=== PATIENT | male | born 1960 | race Caucasian/White ===

== ENCOUNTER 2017-04-23 20:36 | Emergency (ER) | payer OTHER ==
[~2017-04-23] VITALS: Ht 180.3 cm; Wt 84.3 kg
[~2017-04-23 20:36] MED LIST: CITA10TA4 PO; CLIN300C2 PO; LAMO150T32 PO; MULT-923 PO; QUET1TAB30 PO; WARF-246 PO
[2017-04-23 20:51] VITALS: TEMP 36.4; Ht 180.3 cm; Wt 84.3 kg
[2017-04-23 22:09] LABS: BASO % 0.5 %; BASO ABS # 0.03 K/uL (0-0.2); COMPLETE YES; EOS % 2.8 %; HEMATOCRIT 42.7 % (42-52); IG% 0.2 %; LYMPH % 28.3 %; LYMPH ABS # 1.69 K/uL (1.2-3.4); MEAN CELL VOLUME 88.8 fL (80-100); MEAN CORPUSCULAR HEMOGLOBIN 30.1 pg (25-34); MEAN PLATELET VOLUME 9.6 fL (7.4-10.4); MONO % 8.7 %; NEUT % 59.5 %; PLATELET COUNT 219 K/uL (130-400); RED BLOOD COUNT 4.81 M/uL (4.7-6.1); WHITE BLOOD COUNT 5.97 K/uL (4.8-10.8)
--- NOTE | 2017-04-23 22:23 | DIAGNOSTIC IMAGING REPORT ---
(CHEST) THORAX WITHOUT CT DOSE: 332.16 mGy.cm HISTORY: Trauma fall, right lateral rib pain, on coumadin TECHNIQUE: Multiaxial CT images of the chest were performed without contrast. A dose lowering technique was utilized adhering to the principles of ALARA. COMPARISON: None. FINDINGS: Lungs are clear. Minimal atelectasis right base and right middle lobe. No evidence pneumothorax. Hilar and mediastinal regions are unremarkable. Nondisplaced hairline cortical fractures right fifth and sixth ribs the midaxillary line. No associated mass collection or hematoma. All remaining osseous structures are unremarkable. IMPRESSION: 1. Nondisplaced cortical fractures right fifth and sixth ribs. 2. Study is otherwise negative with only minimal right basilar atelectasis. 3. Degenerative change throughout the entire thoracic spine with no acute deformity. The above report was generated using voice recognition software. It may contain grammatical, syntax or spelling errors. Electronically signed by: Sharad Spicer M.D. 04/23/2017 10:22 PM Dictated Date/Time: 04/23/2017 10:15 PM
[2017-04-23 22:29] LABS: INR 3.1 (0.9-1.1); PARTIAL THROMBOPLASTIN RATIO 1.8; PROTHROMBIN TIME (PATIENT) 34.3 SECONDS (9.0-12.0)
[2017-04-23 22:31] LABS: ALKALINE PHOSPHATASE 84 U/L (45-117); ALT/SGPT 46 U/L (12-78); AST/SGOT 33 U/L (15-37); BLOOD UREA NITROGEN 20 mg/dl (7-18); BUN/CREATININE RATIO 20.4 (10-20); CALCIUM 8.8 mg/dl (8.5-10.1); CARBON DIOXIDE 30 mmol/L (21-32); CHLORIDE 106 mmol/L (98-107); CREATININE 0.96 mg/dl (0.60-1.40); GLUCOSE 84 mg/dl (70-99); POTASSIUM 4.5 mmol/L (3.5-5.1); SODIUM 139 mmol/L (136-145)
--- NOTE | 2017-04-23 22:43 | EMERGENCY ROOM VISIT NOTE ---
ED Visit Note First contact with patient: 21:26 I did evaluate and examine this patient myself. I did guide management for the patient. I agree with the APC's assessment as discussed. Please see the APC's dictation for further details. I did independently review the CT scan and blood work. His INR is slightly elevated at 3.1. His CT scan shows no evidence of pneumothorax. He does have a fracture to the fifth and sixth ribs which are nondisplaced. He also complains of some right leg pain and numbness posterior thigh but has no dysfunction, hematoma or swelling. He was advised to follow closely with his doctor. He was told to hold his Coumadin one day and then resume at the normal dosage.
[2017-04-23 22:44] VITALS: BP 122/72; PULSE 58; O2SAT 98
[2017-04-23] MEDS ORDERED: TRAMADOL HCL 50 MG HOME PACK PO ONE (22:45)
--- NOTE | 2017-04-23 22:59 | EMERGENCY ROOM VISIT NOTE ---
History First contact with patient: 21:26 Chief Complaint: FALL Stated Complaint: FALL R SIDE PAIN AND BUTTOCKS History of Present Illness The patient is a 56 year old male who presents to the Emergency Room with complaints of falling on Saturday after chasing a bunny and tripping and landing on his right side. Patient complains of right mid axillary chest wall pain and right hamstring pain since the initial fall. Pain currently 5 out of 10. Worse with breathing and better with rest. Patient is on Coumadin for DVT. INR last week was slightly high. He does not know the exact number. Patient denies dyspnea, abdominal pain, back pain, numbness, tingling, pelvic pain, head injury, neck pain, loss of consciousness. Patient had x-rays done today by family care and was advised to go the ER. He is unsure why. Patient states he is able to ambulate without difficulties. Patient denies knee pain, tomlin pain, fever or pain, numbness, tingling. He states when he is 19 he fell 30 feet had atraumatic brain injury and broke some ribs but is unsure where. No prior leg fractures. Review of Systems See HPI for pertinent positives & negatives. A total of 10 systems reviewed and were otherwise negative. Past Medical/Surgical History Traumatic brain injury, seizures, DVT Social History Smoking Status: Never Smoker Smokeless Tobacco Use: No Alcohol Use: none Drug Use: none Housing Status: lives with family Current/Historical Medications Scheduled Citalopram Hydrobromide (Citalopram Hydrobromide), 10 MG PO DAILY Lamotrigine (Lamictal), 300 MG PO BID Multiple Vitamins W/ Minerals (Multivitamin Men), 1 TAB PO Q2D Quetiapine Fumarate (Seroquel), 25 MG PO DAILY Warfarin Sodium (Warfarin Sodium), 10 MG PO 3XWK Warfarin Sodium (Warfarin Sodium), 15 MG PO 4XWK Physical Exam Vital Signs Date Time Temp Pulse Resp B/P (MAP) Pulse Ox O2 Delivery O2 Flow Rate FiO2 04/23/17 22:44 58 18 122/72 98 Room Air 04/23/17 20:51 36.4 58 16 121/61 97 Room Air Physical Exam PHYSICAL EXAM: VITALS: Vitals are noted on the nurse's note and reviewed by myself. Vital signs stable. GENERAL: Pleasant male able to ambulate without difficulties, in no acute distress, nondiaphoretic, well-developed well-nourished. SKIN: The skin was without obvious lacerations or abrasions. Capillary reflex less than 2 seconds. HEAD: Normocephalic atraumatic. EARS: External auditory canals clear, tympanic membranes pearly davis without erythema or effusion bilaterally. No hemotympanums. No jaquez sign. No mastoid tenderness. EYES: Pupils equal round and reactive to light and accommodation. Conjunctivae without injection, sclerae without icterus. Extraocular movements intact. NOSE: Patent, turbinates without inflammation or discharge. No sinus tenderness. No septal hematoma or bleeding. MOUTH: Mucous membranes moist. Pharynx without erythema or exudate. Uvula midline. Airway patent. Tongue does not deviate. NECK: Supple without nuchal rigidity. Cervical spine is nontender. Full range of motion of the neck without tenderness. No JVD. HEART: Regular rate and rhythm without murmurs gallops or rubs. LUNGS: Clear to auscultation bilaterally without wheezes, rales or rhonchi. No dullness to percussion. No retractions or accessory muscle use. Right midaxillary line over ribs 45 and 6 with chest wall tenderness. Without crepitus or ecchymosis ABDOMEN: Positive bowel sounds x 4. Normal tympanic percussion. Soft, nontender, without masses or organomegaly. No guarding or rebound tenderness. MUSCULOSKELETAL: No tenderness of the thoracic or lumbar spine. No tenderness with pelvic rocking. Full range of motion without tenderness to palpation in all extremities. Normal gait. Strength 5/5 throughout. Peripheral pulses 2+. NEURO: Patient was alert and oriented to person place and time. Normal Mini- Mental status exam. Normal sensation to light and sharp touch. Cerebellar function intact. No focal neurological deficits. Medical Decision & Procedures Laboratory Results 04/23/17 21:50 Red Blood Count 4.81, Mean Corpuscular Volume 88.8, Mean Corpuscular Hemoglobin 30.1, Mean Corpuscular Hemoglobin Concent 34.0, Mean Platelet Volume 9.6, Neutrophils (%) (Auto) 59.5, Lymphocytes (%) (Auto) 28.3, Monocytes (%) (Auto) 8.7, Eosinophils (%) (Auto) 2.8, Basophils (%) (Auto) 0.5, Neutrophils # (Auto) 3.55, Lymphocytes # (Auto) 1.69, Monocytes # (Auto) 0.52, Eosinophils # (Auto) 0.17, Basophils # (Auto) 0.03 04/23/17 21:50 Test 04/23/17 21:50 White Blood Count 5.97 K/uL (4.8-10.8) Red Blood Count 4.81 M/uL (4.7-6.1) Hemoglobin 14.5 g/dL (14.0-18.0) Hematocrit 42.7 % (42-52) Mean Corpuscular Volume 88.8 fL (80-100) Mean Corpuscular Hemoglobin 30.1 pg (25-34) Mean Corpuscular Hemoglobin Concent 34.0 g/dl (32-36) Platelet Count 219 K/uL (130-400) Mean Platelet Volume 9.6 fL (7.4-10.4) Neutrophils (%) (Auto) 59.5 % Lymphocytes (%) (Auto) 28.3 % Monocytes (%) (Auto) 8.7 % Eosinophils (%) (Auto) 2.8 % Basophils (%) (Auto) 0.5 % Neutrophils # (Auto) 3.55 K/uL (1.4-6.5) Lymphocytes # (Auto) 1.69 K/uL (1.2-3.4) Monocytes # (Auto) 0.52 K/uL (0.11-0.59) Eosinophils # (Auto) 0.17 K/uL (0-0.5) Basophils # (Auto) 0.03 K/uL (0-0.2) RDW Standard Deviation 42.4 fL (36.4-46.3) RDW Coefficient of Variation 13.0 % (11.5-14.5) Immature Granulocyte % (Auto) 0.2 % Immature Granulocyte # (Auto) 0.01 K/uL (0.00-0.02) Prothrombin Time 34.3 SECONDS (9.0-12.0) Prothromb Time International Ratio 3.1 (0.9-1.1) Activated Partial Thromboplast Time 46.8 SECONDS (21.0-31.0) Partial Thromboplastin Ratio 1.8 Anion Gap 3.0 mmol/L (3-11) Est Creatinine Clear Calc Drug Dose 90.4 ml/min Estimated GFR () 101.3 Estimated GFR (Non- 87.4 BUN/Creatinine Ratio 20.4 (10-20) Calcium Level 8.8 mg/dl (8.5-10.1) Total Bilirubin 0.2 mg/dl (0.2-1) Direct Bilirubin mg/dl (0-0.2) Aspartate Amino Transf (AST/SGOT) 33 U/L (15-37) Alanine Aminotransferase (ALT/SGPT) 46 U/L (12-78) Alkaline Phosphatase 84 U/L (45-117) Total Protein 7.2 gm/dl (6.4-8.2) Albumin 3.4 gm/dl (3.4-5.0) Chemistry Specimen Hemolysis ED Course Prior records/ancillary studies reviewed. Triage Nursing notes reviewed. Additional history obtained from family The patient's history was concerning for traumatic injury Differential diagnosis: Etiologies such as fracture, dislocation, intra-abdominal, pneumothorax, intrathoracic , intracranial, neurologic, as well as other traumatic pathologies were entertained. Physical examination findings: As above. The patients vitals were stable. ER treatment provided: Incentive spirometry On reassessment the patient felt better. Vital signs were stable. Diagnostic interpretation by me: The labs revealed stable H&H. Slightly elevated INR at 3.1 Imaging studies: (CHEST) THORAX WITHOUT CT DOSE: 332.16 mGy.cm HISTORY: Trauma fall, right lateral rib pain, on coumadin TECHNIQUE: Multiaxial CT images of the chest were performed without contrast. A dose lowering technique was utilized adhering to the principles of ALARA. COMPARISON: None. FINDINGS: Lungs are clear. Minimal atelectasis right base and right middle lobe. No evidence pneumothorax. Hilar and mediastinal regions are unremarkable. Nondisplaced hairline cortical fractures right fifth and sixth ribs the midaxillary line. No associated mass collection or hematoma. All remaining osseous structures are unremarkable. IMPRESSION: 1. Nondisplaced cortical fractures right fifth and sixth ribs. 2. Study is otherwise negative with only minimal right basilar atelectasis. 3. Degenerative change throughout the entire thoracic spine with no acute deformity. The above report was generated using voice recognition software. It may contain grammatical, syntax or spelling errors. This appears to be consistent with to right-sided rib fractures. Patient also had slightly elevated INR. Patient's pain was under control. He states he does not need anything stronger. Tylenol. He was given a home pack of Ultram for severe pain case he did needed. He was advised to do incentive spirometry for the next 2 weeks and to follow-up family care in a few days or here in the ER sooner for chest pain, difficulty breathing, fevers, worsening signs or symptoms or as needed. He was advised to hold his Coumadin today and then resume his normal regimen and recheck INR in 1 week. By the evaluation outlined above emergent etiologies such as dislocation, intra-abdominal, pneumothorax, pulmonary contusion, hemothorax, intracranial, neurologic,as well as others were deemed relatively unlikely. The pt informed about the findings as listed above. All questions were answered and pleased with the treatment. Return instructions were outlined and the patient was discharged in stable condition. Referral: The patient was referred to PCP for follow-up in 2 to 3 days for a recheck of the current condition. Case reviewed with my attending Medical Decision As above Medication Reconcilliation Current Medication List: was personally reviewed by me Blood Pressure Screening Patient's blood pressure: Normal blood pressure Impression Primary Impression: Rib fractures Additional Impressions: Supratherapeutic INR Fall Departure Information Dispostion Home / Self-Care Condition GOOD Forms HOME CARE DOCUMENTATION FORM, IMPORTANT VISIT INFORMATION Patient Instructions Lesli Leavitt, My [facility] Additional Instructions Hold your Coumadin today. Restart your normal regimen tomorrow. Recheck your INR in 1 week with family care. Ultram 50 mg: Take 1-2 pills every four hours for breakthrough pain. Avoid alcohol, operating machinery or dangerous equipment, working on ladders or roofs , DRIVING, or situations where being under the influence may be dangerous. It is recommended to use an [id number] stool softener such as Colace, 100mg twice daily while taking this medication to avoid constipation. Acetaminophen(Tylenol) may be used for fever or pain. Use 1000mg every six hours as needed. Avoid using more than 3000mg in a 24 hour period. Rest and drink plenty of fluids as tolerated. Continue current medications. Avoid strenuous activities and anything that worsens your pain. Resume normal activities once your symptoms resolve. Return to the ER immediately for worsening or persistent chest pain, abdominal pain, vomiting, fevers, chest pains, difficulty breathing, worsening of your condition, or as needed. Follow up with your primary physician in 2-3 days for a recheck of your current condition. Problem Qualifiers Primary Impression: Rib fractures Encounter type: initial encounter Rib fracture type: multiple ribs Fracture type: closed Laterality: right Qualified Codes: S22.41XA - Multiple fractures of ribs, right side, initial encounter for closed fracture
== END 2017-04-23 22:55 | disposition home or self-care (01) ==
LOC: C.EDB 20:37 → C.EDD 22:55
DX: S22.41XA Multiple fractures of ribs, right side, initial encounter for closed fracture (principal); R79.1 Abnormal coagulation profile; W01.198A Fall on same level from slipping, tripping and stumbling with subsequent striking against other object, initial encounter; Y93.89 Activity, other specified; Y99.8 Other external cause status; R20.0 Anesthesia of skin; Z87.820 Personal history of traumatic brain injury; Z86.718 Personal history of other venous thrombosis and embolism; Z86.69 Personal history of other diseases of the nervous system and sense organs; Z79.01 Long term (current) use of anticoagulants; Z79.899 Other long term (current) drug therapy

== ENCOUNTER 2017-05-19 12:19 | Emergency (ER) | payer OTHER ==
[~2017-05-19] VITALS: Ht 180.3 cm; Wt 84.3 kg
[~2017-05-19 12:19] MED LIST changes: -CLIN300C2 PO
[2017-05-19 12:30] VITALS: TEMP 37.4; Ht 180.3 cm; Wt 84.3 kg
[2017-05-19 12:38] VITALS: O2SAT 98
--- NOTE | 2017-05-19 13:12 | DIAGNOSTIC IMAGING REPORT ---
CHEST ONE VIEW PORTABLE CLINICAL HISTORY: chest pain dyspnea COMPARISON STUDY: No previous studies for comparison. FINDINGS: The bones soft tissues and hemidiaphragms are normal. The cardiomediastinal silhouette is normal. The lungs are clear. The pulmonary vasculature is normal. IMPRESSION: Negative chest. The above report was generated using voice recognition software. It may contain grammatical, syntax or spelling errors. Electronically signed by: Sharad Spicer M.D. 05/19/2017 1:11 PM Dictated Date/Time: 05/19/2017 1:11 PM
[2017-05-19] MEDS ORDERED: ACETAMINOPHEN IV 100 ML IV STA (13:14)
[2017-05-19] MEDS ORDERED: FENTANYL CITRATE INJ 50 MCG/1 ML 2 ML VIAL IV STA (13:14)
[2017-05-19 13:15] LABS: HEMATOCRIT 41.6 % (42-52); MEAN CELL VOLUME 87.6 fL (80-100); MEAN CORPUSCULAR HEMOGLOBIN 30.7 pg (25-34); MEAN CORPUSCULAR HGB CONC 35.1 g/dl (32-36); MEAN PLATELET VOLUME 9.6 fL (7.4-10.4); PLATELET COUNT 213 K/uL (130-400); RED BLOOD COUNT 4.75 M/uL (4.7-6.1); WHITE BLOOD COUNT 7.01 K/uL (4.8-10.8)
[2017-05-19 13:30] LABS: INR 2.8 (0.9-1.1); PARTIAL THROMBOPLASTIN RATIO 1.6; PROTHROMBIN TIME (PATIENT) 31.5 SECONDS (9.0-12.0)
[2017-05-19 13:32] LABS: BUN/CREATININE RATIO 17.4 (10-20); CALCIUM 8.9 mg/dl (8.5-10.1); CREATININE 0.98 mg/dl (0.60-1.40); POTASSIUM 4.2 mmol/L (3.5-5.1)
[2017-05-19 13:37] LABS: CKMB/CK RATIO 2.8 (0-3.0)
--- NOTE | 2017-05-19 14:14 | DIAGNOSTIC IMAGING REPORT ---
HEAD WITHOUT CONTRAST (CT) CT DOSE: 614.27 mGy.cm HISTORY: Trauma recent fall, hit head, on coumadin TECHNIQUE: Multiaxial CT images of the head were performed without the use of intravenous contrast. A dose lowering technique was utilized adhering to the principles of ALARA. Comparison: 12/06/2007 Findings: The paranasal sinuses and mastoid air cells are clear. The calvarium and skull base are intact. The ventricles and sulci are within normal limits. There is no mass, hematoma, midline shift, or acute infarct. Age-related mild chronic small vessel change and atrophy. Impression: No acute intracranial abnormality. The above report was generated using voice recognition software. It may contain grammatical, syntax or spelling errors. Electronically signed by: Sharad Spicer M.D. 05/19/2017 2:12 PM Dictated Date/Time: 05/19/2017 2:12 PM
--- NOTE | 2017-05-19 14:20 | EMERGENCY ROOM VISIT NOTE ---
History First contact with patient: 13:04 Chief Complaint: CHEST PAIN Stated Complaint: PAIN IN CENTER OF CHEST Nursing Triage Summary: Patient c/o intermittent chest pain that started yesterday with SOB. Per patient, sister is a nurse who said he was clammy. Patient denies N/V/D. History of Present Illness The patient is a 56 year old male who presents to the Emergency Room with complaints of chest pain that started yesterday afternoon. He states a few days ago that he used his chest to push a tennis ball on the bottom of his mother's walker, he believes he pushed against the area where he is having the pain. Patient states that he has a constant steady ache in the middle of his lower chest, with intermittent sharp intense squeezing pain. The pain does not radiate, is worse with movement and taking a deep breath, 5/10. He had some associated feelings of not being able to take a deep breath because of the pain , and also states he felt a little clammy yesterday, he denies any nausea, vomiting, diarrhea, dizziness or syncope, abdominal pain, back pain, headache, numbness or weakness, difficulty walking, confusion, slurring speech, fevers or chills. 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 He denies any cardiac history. His friend does note that about a week ago they were hiking and he fell, hitting his head, no loss of consciousness, and no ongoing complaints, but because he is on Coumadin he would like to have his braces checked while he is here. Review of Systems A complete 10 point review of systems was reviewed with the patient with pertinent positives and negatives as per history of present illness. All else were negative. Past Medical/Surgical History Depression, anxiety, DVT lower extremity Social History Smoking Status: Never Smoker Alcohol Use: none Drug Use: none Housing Status: lives with family Current/Historical Medications Scheduled Citalopram Hydrobromide (Citalopram Hydrobromide), 10 MG PO DAILY Lamotrigine (Lamictal), 300 MG PO BID Multiple Vitamins W/ Minerals (Multivitamin Men), 1 TAB PO Q2D Quetiapine Fumarate (Seroquel), 25 MG PO HS Warfarin Sodium (Warfarin Sodium), 10 MG PO 3XWK Warfarin Sodium (Warfarin Sodium), 15 MG PO 4XWK Allergies Coded Allergies: Penicillins (Verified Allergy, Mild, 9/10/17) Morphine (Verified Allergy, Unknown, 05/19/17) Physical Exam Vital Signs Date Time Temp Pulse Resp B/P (MAP) Pulse Ox O2 Delivery O2 Flow Rate FiO2 05/19/17 15:34 57 16 125/72 98 05/19/17 13:36 60 18 128/70 94 Room Air 05/19/17 13:25 63 05/19/17 12:44 100 Room Air 05/19/17 12:38 98 05/19/17 12:30 37.4 78 20 135/84 96 Room Air Physical Exam CONSTITUTIONAL: No acute distress, but does appear to be slightly uncomfortable. Well appearing and well nourished. Alert and oriented X 4 with normal affect. HEENT: Normocephalic, atraumatic. Pupils equal, round and reactive to light, EOMI. TMs normal. Pharynx normal. NECK: Supple, full active range of motion without discomfort. RESPIRATORY: Clear to auscultation bilaterally with no wheezing, crackles, rhonchi or stridor. Equal expansion bilaterally. CARDIOVASCULAR: Regular rate and rhythm with no murmurs, rubs or gallops. Normal peripheral perfusion. No edema. CHEST WALL: There is moderate tenderness of the substernal/epigastric area and bilateral lower anterior rib cage to palpation, reproduces patient's complaint. No crepitus, no ecchymosis or abrasions. GASTROINTESTINAL: Soft, nontender, nondistended. Bowel sounds present in all quadrants. MUSCULOSKELETAL: Full range of motion of all joints without discomfort. INTEGUMENTARY: No rash or other significant dermatologic conditions noted. NEUROLOGIC: Cranial nerves II-XII grossly intact. No focal neurologic deficits noted. Normal strength, normal sensation, normal speech, normal gait, normal coordination. No facial droop, no pronator drift. Medical Decision & Procedures ER Provider Diagnostic Interpretation: HEAD WITHOUT CONTRAST (CT) CT DOSE: 614.27 mGy.cm HISTORY: Trauma recent fall, hit head, on coumadin TECHNIQUE: Multiaxial CT images of the head were performed without the use of intravenous contrast. A dose lowering technique was utilized adhering to the principles of ALARA. Comparison: 12/06/2007 Findings: The paranasal sinuses and mastoid air cells are clear. The calvarium and skull base are intact. The ventricles and sulci are within normal limits. There is no mass, hematoma, midline shift, or acute infarct. Age-related mild chronic small vessel change and atrophy. Impression: No acute intracranial abnormality. ----- CHEST ONE VIEW PORTABLE CLINICAL HISTORY: chest pain dyspnea COMPARISON STUDY: No previous studies for comparison. FINDINGS: The bones soft tissues and hemidiaphragms are normal. The cardiomediastinal silhouette is normal. The lungs are clear. The pulmonary vasculature is normal. IMPRESSION: Negative chest. Laboratory Results 05/19/17 12:46 05/19/17 12:46 Test 05/19/17 12:46 05/19/17 14:24 Red Blood Count 4.75 M/uL (4.7-6.1) Mean Corpuscular Volume 87.6 fL (80-100) Mean Corpuscular Hemoglobin 30.7 pg (25-34) Mean Corpuscular Hemoglobin Concent 35.1 g/dl (32-36) RDW Standard Deviation 40.9 fL (36.4-46.3) RDW Coefficient of Variation 12.8 % (11.5-14.5) Mean Platelet Volume 9.6 fL (7.4-10.4) Prothrombin Time 31.5 SECONDS (9.0-12.0) Prothromb Time International Ratio 2.8 (0.9-1.1) Activated Partial Thromboplast Time 40.6 SECONDS (21.0-31.0) Partial Thromboplastin Ratio 1.6 Anion Gap 6.0 mmol/L (3-11) Est Creatinine Clear Calc Drug Dose 88.5 ml/min Estimated GFR () 98.8 Estimated GFR (Non- 85.2 BUN/Creatinine Ratio 17.4 (10-20) Calcium Level 8.9 mg/dl (8.5-10.1) Total Bilirubin 0.3 mg/dl (0.2-1) Aspartate Amino Transf (AST/SGOT) 24 U/L (15-37) Alanine Aminotransferase (ALT/SGPT) 41 U/L (12-78) Alkaline Phosphatase 105 U/L (45-117) Total Creatine Kinase 87 U/L (39-308) Creatine Kinase MB 2.4 ng/ml (0.5-3.6) Creatine Kinase MB Ratio 2.8 (0-3.0) Total Protein 6.9 gm/dl (6.4-8.2) Albumin 3.4 gm/dl (3.4-5.0) Globulin 3.5 gm/dl (2.5-4.0) Albumin/Globulin Ratio 1.0 (0.9-2) Lipase 127 U/L (73-393) Bedside Troponin I < 0.030 ng/ml (0-0.045) Medications Administered Medications (Trade) Dose Ordered Sig/Yani Route Start Time Stop Time Status Last Admin Dose Admin Fentanyl Citrate (Fentanyl Inj) 50 mcg NOW STAT IV 05/19/17 13:14 05/19/17 13:19 DC 05/19/17 13:36 50 MCG Acetaminophen 100 ml @ 400 mls/hr NOW STAT IV 05/19/17 13:14 05/19/17 13:28 DC 05/19/17 13:36 400 MLS/HR ECG Indication: chest pain Rate (beats per minute): 89 Rhythm: normal sinus Findings: no acute ischemic change, no ectopy Comparison ECG Date: no prior available Medical Decision CC: Patient presenting with complaint of chest pain Interpretation of Labs: No leukocytosis, no anemia, no significant electrolyte abnormalities, normal renal function, normal liver enzymes and lipase, negative troponin x2, INR is therapeutic. Differential Diagnosis: Includes, but not limited to acute coronary syndrome, pulmonary embolism, pneumothorax, pericarditis, musculoskeletal pain, GERD, costochondritis, pneumonia, among others. Medication Reconciliation: I attest that I have personally reviewed the patient' s current medication list. Vital signs review: I reviewed the patient's vital signs and interpret them as follows: T: Afebrile; BP: Normotensive; HR: Within normal limits; RR: Within normal limits; Pulse Ox: Within normal limits on room air. Blood pressure screening: The patient was found to have normal blood pressure on screening and does not require follow-up for repeat blood pressure check. Summary: Patient was evaluated at bedside, history of physical exam performed. Patient is alert and in no acute distress, resting quietly in the stretcher. His pain is reproducible in the substernal/epigastric region with palpation of the bilateral anterior ribs. EKG reviewed at bedside, normal sinus rhythm with no ischemic changes. Orders were placed at bedside for labs including troponin, IV fentanyl and IV Tylenol for pain, chest x-ray to evaluate for pneumonia. Patient discussed with Dr. Moore, who agrees with my assessment and plan. Labs reviewed as above, no acute abnormalities. Negative troponin x2 with more than 12 hours of constant chest pain. Chest x-ray reviewed, this is clear with no signs of pneumonia or pneumothorax. CT head reviewed, no acute abnormalities. Patient does have history of DVT, he is treated with Coumadin for this and is therapeutic. Symptoms seem unlikely for PE at this time, given the reproducible pain at the site of injury. Given the patient's recent rib fractures, as well as his report of injuring the front of his chest recently, and worsened pain with palpation and movement, costochondritis is most likely the cause of his pain. I instructed him on management, and encouraged him to follow up closely with his PCP, as well as gave him strict return precautions. He verbalized understanding and was comfortable with plan for discharge. Patient was discharged home in stable condition and ambulatory. Impression Primary Impression: Acute costochondritis Departure Information Dispostion Home / Self-Care Condition GOOD Referrals Georgia Andrade M.D. (PCP) Patient Instructions ED Chest Pain Costochondritis, My [facility] Additional Instructions You have been treated in the Emergency Department your Chest Pain. Laboratory results and imaging studies have ruled out any emergent causes for your abdominal pain which would warrant admission or surgery. For pain control, you can use the following [id number] medicines (if >12 yo): - Regular strength (325mg/tab) Tylenol (acetaminophen) 2 tabs every 4-6 hours as needed. Do not exceed 10 tablets in a 24 hour period. Avoid taking more than 3000 mg of Tylenol per day. This includes any other sources of acetaminophen you may take on a regular basis. You may alternate between applying ice and heat to the area of pain several times throughout the day, to help reduce inflammation and improve comfort. Drink plenty of water and stay well hydrated. Your INR level today was 2.8, which is a therapeutic level. You should continue taking her Coumadin as prescribed. Please follow-up with your Primary Care Provider in the next 1-2 days. Return to the emergency department if your symptoms persist despite treatment plan outlined above or if the following symptoms occur: increased fevers, chills , worsening nausea/vomiting, blood in your stool or urine.
[2017-05-19 15:34] VITALS: BP 125/72; PULSE 57; O2SAT 98
== END 2017-05-19 15:36 | disposition home or self-care (01) ==
LOC: C.EDB 12:19
DX: M94.0 Chondrocostal junction syndrome [Tietze] (principal); F32.9 Major depressive disorder, single episode, unspecified; F41.9 Anxiety disorder, unspecified; Z86.718 Personal history of other venous thrombosis and embolism; Z79.01 Long term (current) use of anticoagulants; Z79.899 Other long term (current) drug therapy; Z88.0 Allergy status to penicillin; Z88.5 Allergy status to narcotic agent